=== PATIENT | male | born 1995 | race African-American/Black ===

== ENCOUNTER 2021-11-15 13:37 | Emergency (ER) | payer SELFPAY ==
[2021-11-15] MEDS ORDERED: Boostrix 0.5 ML (Tdap) VIAL ONE (14:23)
== END 2021-11-15 14:44 | disposition home or self-care (01) ==
LOC: ERS 13:37
DX: K04.7 Periapical abscess without sinus (principal); K03.81 Cracked tooth; K02.9 Dental caries, unspecified; K64.4 Residual hemorrhoidal skin tags
CPT/HCPCS: 41800; 90471; 90715

== ENCOUNTER 2022-01-14 22:13 | Emergency (ER) | payer SELFPAY ==
[2022-01-14] MEDS ORDERED: Ondansetron ODT 4 MG TAB ONE (22:42)
== END 2022-01-14 23:25 | disposition home or self-care (01) ==
LOC: ERS 22:13
DX: R11.2 Nausea with vomiting, unspecified (principal); F17.200 Nicotine dependence, unspecified, uncomplicated
CPT/HCPCS: 99283; Q0162

== ENCOUNTER 2022-04-19 16:41 | Emergency (ER) | payer SELFPAY ==
[2022-04-19 17:58] LABS: SARS-CoV-2 NAA Rapid Test Not Detected (NotDetected)
== END 2022-04-19 19:08 | disposition home or self-care (01) ==
LOC: ERS 16:41
DX: J06.9 Acute upper respiratory infection, unspecified (principal); F17.210 Nicotine dependence, cigarettes, uncomplicated; Z20.822 Contact with and (suspected) exposure to COVID-19
CPT/HCPCS: 71045

== ENCOUNTER 2022-04-28 22:54 | Emergency (ER) | payer SELFPAY ==
[2022-04-28] MEDS ORDERED: Lidocaine 1% PF 5 ML VIAL ONE (23:24)
== END 2022-04-29 00:34 | disposition home or self-care (01) ==
LOC: ERS 22:54
DX: S61.411A Laceration without foreign body of right hand, initial encounter (principal); F17.210 Nicotine dependence, cigarettes, uncomplicated; W23.0XXA Caught, crushed, jammed, or pinched between moving objects, initial encounter
CPT/HCPCS: 12001

== ENCOUNTER 2022-05-11 15:45 | Emergency (ER) | payer BC, SELFPAY | END 2022-05-11 17:13 | disposition home or self-care (01) | LOC: ERS 15:45 | DX: S61.011D Laceration without foreign body of right thumb without damage to nail, subsequent encounter (principal); W26.0XXD Contact with knife, subsequent encounter ==

== ENCOUNTER 2022-05-18 13:00 | Observation (INO) | payer BC ==
[~2022-05-18 13:00] MED LIST: Iopamidol-370 76% 500 ML 1 ML ONE; MD-Gastroview 120 ML BOT ONE
[2022-05-18 14:05] LABS: #Monocytes 0.5 thou/uL (0.11-0.59); #Neutrophils 2.7 thou/uL (1.40-6.50); %Basophils 0.7 % (0.0-1.0); %Eosinophils 0.4 % (0.0-10.0); %Lymphocytes 24.3 % (21.0-51.0); %Monocytes 11.6 % (0.0-10.0); Hemoglobin 14.1 g/dL (14.0-18.0); Mean Corpuscular HGB CONC 33.5 g/dL (32.0-36.0); Mean Corpuscular Hemoglobin 31.7 pg (27.0-31.0); Mean Corpuscular Volume 94.6 fl (78.0-98.0); Mean Platelet Volume 9.4 fL (7.4-10.4); Platelet Count 132 10x3/uL (130-400); Red Blood Cell (RBC) Count 4.44 mill/uL (4.70-6.10); White Blood Cell (WBC) Count 4.3 10x3/uL (4.8-10.8)
[2022-05-18 14:13] LABS: INR-International Normal Ratio 1.1; PTT 24.2 sec (22.9-36.1); Prothrombin Time 14.2 sec (12.0-14.7)
[2022-05-18 14:28] LABS: ALT (SGPT) 13 U/L (8-55); AST (SGOT) 20 U/L (5-34); Albumin 4.2 g/dL (3.5-5.0); Alkaline Phosphatase 47 U/L (40-110); Anion Gap 13 mmol/L (10-20); BUN (Urea Nitrogen) 19 mg/dL (8.9-20.6); Bilirubin, Total 1.1 mg/dL (0.2-1.2); Calc. Creatinine Clearance 0 mL/min (70-130); Calcium 9.1 mg/dL (7.8-10.44); Carbon Dioxide 23 mmol/L (22-29); Chloride 105 mmol/L (98-107); Estimated GFR 102; Globulin 2.8 g/dL (2.4-3.5); Glucose 90 mg/dL (70-105); Potassium 3.6 mmol/L (3.5-5.1); Sodium 137 mmol/L (136-145)
[2022-05-18] MEDS ORDERED: Sodium Chloride 0.9% 100 ML ONE (14:58)
[2022-05-18] MEDS ORDERED: Fentanyl 100 MCG/2 ML VIAL ONE (14:58)
[2022-05-18] MEDS ORDERED: Cefepime 2 GM VIAL ONE (14:58)
[2022-05-18] MEDS ORDERED: Lidocaine 1% PF 5 ML VIAL ONE (15:20)
[2022-05-18] MEDS ORDERED: Morphine 2 MG/ML VIAL SLOW IVP PRN (16:00)
[2022-05-18] MEDS ORDERED: Sodium Chloride 0.9% 1,000 ML IV SCH (16:00)
[2022-05-18] MEDS ORDERED: hydrALAZINE 20 MG/ML VIAL SLOW IVP PRN (16:00)
[2022-05-18] MEDS ORDERED: Dextrose 5% in Water 1,000 ML IV PRN (16:00)
[2022-05-18] MEDS ORDERED: Ipratropium/Albuterol 3 ML NEB NEB PRN (16:00)
[2022-05-18] MEDS ORDERED: Morphine 4 MG/ML VIAL SLOW IVP PRN (16:00)
[2022-05-18] MEDS ORDERED: TETANUS, DIPHTHERIA TOX,ADULT (TDVAX) 0.5 ML VIAL IM ONE (16:00)
[2022-05-18] MEDS ORDERED: Dextrose 50% Abboject 50 ML SYRINGE SLOW IVP PRN (16:00)
[2022-05-18] MEDS ORDERED: Morphine 4 MG/ML VIAL ONE (17:36)
[2022-05-18] MEDS ORDERED: Acetaminophen W/ Codeine 5 ML UDCUP PO PRN (17:55)
[2022-05-18] MEDS: Dexamethasone 4 mg/ml Vial SLOW IVP SCH (20:59)
[2022-05-18] MEDS ORDERED: Pantoprazole 40 MG VIAL IVP SCH (21:00)
[2022-05-18] MEDS ORDERED: Famotidine/PF 20 mg/2ml Vial SLOW IVP SCH (21:00)
[2022-05-18 23:36] VITALS: BMI 20.2
[2022-05-19] MEDS: Dexamethasone 4 mg/ml Vial SLOW IVP SCH ×2 (03:46→10:57)
[2022-05-19 04:15] LABS: #Lymphocytes 1.1 thou/uL (1.20-3.40); #Monocytes 0.6 thou/uL (0.11-0.59); #Neutrophils 8.6 thou/uL (1.40-6.50); %Eosinophils 0.1 % (0.0-10.0); %Lymphocytes 10.8 % (21.0-51.0); %Monocytes 5.8 % (0.0-10.0); %Neutrophils 83.2 % (42.0-75.0); Hemoglobin 13.6 g/dL (14.0-18.0); Mean Corpuscular HGB CONC 32.5 g/dL (32.0-36.0); Mean Corpuscular Hemoglobin 30.7 pg (27.0-31.0); Mean Corpuscular Volume 94.5 fl (78.0-98.0); Mean Platelet Volume 9.7 fL (7.4-10.4); Platelet Count 135 10x3/uL (130-400); RBC Distribution Width 12.1 % (11.5-14.5); Red Blood Cell (RBC) Count 4.44 mill/uL (4.70-6.10); White Blood Cell (WBC) Count 10.3 10x3/uL (4.8-10.8)
[2022-05-19 04:42] LABS: Anion Gap 12 mmol/L (10-20); BUN (Urea Nitrogen) 15 mg/dL (8.9-20.6); Calc. Creatinine Clearance 100 mL/min (70-130); Carbon Dioxide 22 mmol/L (22-29); Chloride 105 mmol/L (98-107); Estimated GFR 117; Glucose 125 mg/dL (70-105); Magnesium 1.9 mg/dL (1.6-2.6); Phosphorus 3.9 mg/dL (2.3-4.7); Potassium 4.2 mmol/L (3.5-5.1); Sodium 135 mmol/L (136-145)
[2022-05-19 11:36] VITALS: TEMP 98.2
[2022-05-21] MEDS ORDERED: FLU VACC QS2022-23(6MOS UP)/PF 60 MCG/0.5 ML SYRINGE IM ONE (23:45)
== END 2022-05-19 13:50 | disposition home or self-care (01) ==
LOC: ERS 13:00 → ERHOLD 17:41 → INTOOBSV 17:41 → IMCU/EMU 20:37
PROVIDERS: ADMIT Surgery; ATTEND Surgery
DX: S11.81XA Laceration without foreign body of other specified part of neck, initial encounter (principal); S01.311A Laceration without foreign body of right ear, initial encounter; J98.2 Interstitial emphysema; K11.8 Other diseases of salivary glands; G89.11 Acute pain due to trauma; F17.210 Nicotine dependence, cigarettes, uncomplicated; Z88.0 Allergy status to penicillin; Z20.822 Contact with and (suspected) exposure to COVID-19; W26.0XXA Contact with knife, initial encounter
CPT/HCPCS: 12013; 36415; 70490; 70498; 71045; 71260; 74220; 80048; 80053; 83735; 84100; 85025; 85610; 85730; 86850; 86900; 86901; 90714; 96365; 96375; C9113; G0378; G0390; J0692; J1100; J2270; J3010; J3490; J7050; Q9963; Q9967; U0003; U0005

== ENCOUNTER 2022-07-26 21:18 | Emergency (ER) | payer BC | END 2022-07-26 23:32 | disposition home or self-care (01) | LOC: ERS 21:18 | DX: R07.81 Pleurodynia (principal) | CPT/HCPCS: 71045; 93005 ==

== ENCOUNTER 2022-11-17 17:00 | Emergency (ER) | payer BC ==
[2022-11-17] MEDS ORDERED: predniSONE 20 MG TAB ONE (17:23)
[2022-11-17 18:24] LABS: SARS-CoV-2 NAA Rapid Test DETECTED (NotDetected)
== END 2022-11-17 18:42 | disposition home or self-care (01) ==
LOC: ERS 17:00
DX: U07.1 COVID-19 (principal); F17.290 Nicotine dependence, other tobacco product, uncomplicated
CPT/HCPCS: 71045; 87081; 87430; 93005; J7512